=== PATIENT | male | born 1995 ===

== ENCOUNTER 2020-01-09 19:00 | Emergency (ER) | payer SELFPAY ==
[2020-01-09] MEDS ORDERED: KETOROLAC TROMETHAMINE 10 MG TAB ONE (20:54)
[2020-01-09] MEDS ORDERED: KETOROLAC TROMETHAMINE 10 MG TAB As Ordered ONE (20:54)
== END 2020-01-09 20:59 | disposition home or self-care (01) ==
LOC: M ED 19:00
DX: S06.0X0A Concussion without loss of consciousness, initial encounter (principal); S00.03XA Contusion of scalp, initial encounter; V86.95XA Unspecified occupant of 3- or 4- wheeled all-terrain vehicle (ATV) injured in nontraffic accident, initial encounter; Y92.89 Other specified places as the place of occurrence of the external cause; Y93.9 Activity, unspecified; Y99.9 Unspecified external cause status; Z79.899 Other long term (current) drug therapy; Z88.8 Allergy status to other drugs, medicaments and biological substances